=== PATIENT | female | born 1990 | race Caucasian/White ===

== ENCOUNTER 2016-11-13 17:18 | Emergency (ER) | payer OTHER | END 2016-11-13 21:17 | disposition home or self-care (01) | LOC: FER 17:18 | DX: S52.122A Displaced fracture of head of left radius, initial encounter for closed fracture (principal); M25.532 Pain in left wrist; Z88.5 Allergy status to narcotic agent; W01.0XXA Fall on same level from slipping, tripping and stumbling without subsequent striking against object, initial encounter; Y92.008 Other place in unspecified non-institutional (private) residence as the place of occurrence of the external cause | CPT/HCPCS: 73080; 73090; 73110; J1100; J1885 ==

== ENCOUNTER 2020-08-04 08:02 | Day surgery (SDCO) | payer OTHER ==
[~2020-08-04 08:02] MED LIST: ETODOLAC500 MG PO; MACROBID100 MG PO
[2020-08-04 08:28] LABS: HCG (URINE) SCREEN NEGATIVE (NEGATIVE)
[2020-08-05 05:45] LABS: HCT 34.3 % (37.0-47.0); HGB 11.2 g/dl (12.5-16.0); MCH 30.7 pg (25.0-31.0); MCHC 32.7 g/dL (32.0-36.0); MPV 10.3 fL (6.0-9.5); RBC 3.65 M/uL (4.20-5.40); RDW 13.2 % (11.5-14.0); WBC 10.4 K/uL (4.0-10.5)
[2020-08-05] MEDS ORDERED: COLACE100 M1 PO (12:08)
[2020-08-05] MEDS ORDERED: IBUPROFEN600 MG PO (12:08)
[2020-08-05] MEDS ORDERED: PERCOCET 5-3251 EACH PO (12:08)
[2020-08-05] MEDS ORDERED: COLACE100 MG PO (12:09)
== END 2020-08-05 16:50 | disposition home or self-care (01) ==
LOC: FSDC 08:02 → FMS 09:20
PROVIDERS: ADMIT Obstetrics & Gynecology
DX: D25.0 Submucous leiomyoma of uterus (principal); N72 Inflammatory disease of cervix uteri; N80.0 Endometriosis of uterus; N70.11 Chronic salpingitis; N73.6 Female pelvic peritoneal adhesions (postinfective); I10 Essential (primary) hypertension; G43.909 Migraine, unspecified, not intractable, without status migrainosus; E66.9 Obesity, unspecified; Z68.25 Body mass index [BMI] 25.0-25.9, adult; Z98.890 Other specified postprocedural states; Z20.822 Contact with and (suspected) exposure to COVID-19
CPT/HCPCS: 36415; 84703; 86850; 86900; 86901; G0378; J0360; J0690; J1100; J1170; J1885; J2175; J2250; J2405; J2550; J2704; J2710; J3010; J7120; J7121